=== PATIENT | female | born 1975 | race Hispanic/Latino ===

== ENCOUNTER 2018-06-01 20:00 | Emergency (ER) | payer OTHER ==
[~2018-06-01] VITALS: Ht 160 cm; Wt 88.1 kg
--- OUTSIDE RECORDS SUMMARY | 2018-06-01 20:03 | XMS REPORT ---
Author Author [facility] Address Unknown Phone Unavailable Care Team Providers Care Senior Data Modeler Name Role Phone EDUARD HARKINS Unavailable Unavailable Problems This patient has no known problems. Allergies, Adverse Reactions, Alerts This patient has no known allergies or adverse reactions. Medications This patient has no known medications. Encounters Start Date/Time End Date/Time Encounter Type Admission Type Attending Clinicians Care Facility Care Department Encounter ID 2017-04-02 15:08:00 2017-06-11 23:59:00 Outpatient [facility] [id number]
--- OUTSIDE RECORDS SUMMARY | 2018-06-01 20:03 | XMS REPORT | Clinical Summary ---
Author Author [facility] Address Unknown Phone Unavailable Care Team Providers Care [employer] Computer Science Teacher Name Role Phone Bharti Tysonfer Shira [employer]IL[employer] MANAGEMENT UM NURSE-C PCP Allergies Comments Active Allergy Reactions Severity Noted Date Scarring Adhesive Tape-Silicones Other (See 11/12/2017 Comments) Amoxicillin-Pot Hives, GI 06/22/2016 Clavulanate Intolerance Pt cites Itching and Hallucinations as reactions. Codeine Itching Medium 06/16/2016 Telithromycin Hives, GI 06/22/2016 Intolerance Shellfish Derived Anaphylaxis High 06/08/2016 Medications End Date Status Medication Sig Dispensed Refills Start Date Active montelukast (SINGULAIR) Take 10 mg by 3 10 mg tablet mouth every 7 evening. Active liraglutide (VICTOZA Inject 1.8 mg 0 2-SHERMAN) 0.6 mg/0.1 mL (18 under the mg/3 mL) pen injector skin daily. Active metFORMIN (GLUCOPHAGE) Take 1,000 mg 0 1,000 mg tablet by mouth 2 (two) times a day with meals. Active pravastatin (PRAVACHOL) Take 20 mg by 0 20 MG tablet mouth nightly. Active vortioxetine (TRINTELLIX) Take 20 mg by 0 20 mg tablet mouth nightly. Active cholecalciferol, vitamin Take 3,000 0 D3, (VITAMIN D3) 5,000 Units by unit tablet mouth. Active fluticasone (FLONASE) 50 2 sprays by 0 mcg/actuation nasal spray Each Nare route daily. Active albuterol (PROAIR Inhale 2 0 HFA,PROVENTIL puffs as HFA,VENTOLIN HFA) 90 needed for mcg/actuation inhaler wheezing. Active multivitamin with Take 1 tablet 0 minerals tablet by mouth daily. Active ALPRAZolam (XANAX) 0.5 MG Take 0.5 mg 0 tablet by mouth as needed for anxiety. Active insulin degludec (TRESIBA Inject 30 0 FLEXTOUCH U-200) 200 Units under unit/mL (3 mL) insulin the skin pen nightly. Active lisinopril Take 10 mg by 0 (PRINIVIL,ZESTRIL) 5 mg mouth daily. tablet Active MIBELAS 24 FE 1 mg-20 CHEW OR 84 tablet 1 mcg(24) /75 mg (4) SWALLOW ONE 8 tablet,chewable TABLET BY MOUTH DAILY Active loratadine (CLARITIN) 10 Take 10 mg by 0 mg tablet mouth daily. Active empagliflozin (JARDIANCE) Take 25 mg by 0 25 mg tablet mouth daily. Active insulin lispro (HUMALOG Inject 15 0 U-100 INSULIN SUBQ) Units under the skin as needed. PRN if blood sugar is 150 or higher. Active epINEPHrine 1 mg/mL kit Inject as 0 directed. Active diphenhydrAMINE Take 50 mg by 0 (BENADRYL) 25 mg capsule mouth every 6 (six) hours as needed for itching. Active azelastine (ASTELIN) 137 1 spray into 0 mcg (0.1 %) nasal spray each nostril as needed for rhinitis. Use in each nostril as directed Active cyanocobalamin, vitamin Take by 0 B-12, (VITAMIN B-12 ORAL) mouth. Active iron Take by 0 bis-gly/FA/C/B12/Ca/succ mouth. (IRON-150 ORAL) Active amitriptyline (ELAVIL) 25 Take 25 mg by 2 MG tablet mouth daily. 8 09/21/2017 Discontinued cetirizine (ZyrTEC) 10 MG Take 10 mg by 0 tablet mouth nightly. 09/21/2017 Discontinued omeprazole OTC (PriLOSEC Take 20 mg by 0 OTC) 20 MG EC tablet mouth daily. 09/21/2017 Discontinued lutein 20 mg tablet Take by 0 mouth. 09/21/2017 Discontinued nystatin-triamcinolone Apply 30 g 0 (MYCOLOG II) 100,000-0.1 topically 2 7 unit/g-% cream (two) times a day. 08/25/2017 Discontinued norethindrone-e.estradiol Chew or 84 tablet 3 -iron (MINASTRIN 24 FE) 1 swallow one 7 mg-20 mcg(24) /75 mg (4) tablet daily tablet,chewable 09/17/2017 acetaminophen-codeine Take 1-2 30 tablet 0 (TYLENOL WITH CODEINE #3) tablets by 8 300-30 mg per tablet mouth every 4 (four) hours as needed for moderate pain for up to 5 days. 11/05/2017 acetaminophen-codeine Take 1-2 30 tablet 0 (TYLENOL WITH CODEINE #3) tablets by 8 300-30 mg per tablet mouth every 4 (four) hours as needed for moderate pain for up to 5 days. Active Problems Problem Noted Date Carpal tunnel syndrome on right 10/31/2017 Overview: Added automatically from request for surgery [id number] Lesion of right ulnar nerve 10/31/2017 Overview: Added automatically from request for surgery [id number] Carpal tunnel syndrome on left 09/13/2017 Overview: Added automatically from request for surgery [id number] Lesion of left ulnar nerve 09/13/2017 Overview: Added automatically from request for surgery [id number] Pelvic mass 06/30/2016 Encounters Care Team Description Date Type Specialty Derian Moe MD Right ankle pain, unspecified chronicity (Primary Dx) 01/08/2018 Office Visit Orthopedic Surgery Eamon Méndez MD Carpal tunnel syndrome of right wrist (Primary Dx); Cubital tunnel syndrome on right 11/29/2017 Office Visit Orthopedic Surgery Marilou Richardson PA 11/27/2017 Telephone Orthopedic Surgery Mee Lopez FNP 11/19/2017 Anesthesia General Surgery Event Eamon Méndez MD Right endoscopic carpal tunnel release 11/19/2017 Surgery General Surgery Eamon Méndez MD 11/19/2017 Hospital General Surgery Encounter Eamon Méndez MD Preop testing (Primary Dx) 11/12/2017 Pre-Admit Pre-Admission Testing Testing Appointment Eamon Méndez MD Carpal tunnel syndrome of right wrist (Primary Dx); Cubital tunnel syndrome on right; Left carpal tunnel syndrome; Cubital tunnel syndrome on left 10/31/2017 Office Visit Orthopedic Surgery Eamon Méndez MD Carpal tunnel syndrome on right (Primary Dx); Lesion of right ulnar nerve 10/31/2017 Transcribe Orthopedic Surgery Orders Eamon Méndez MD Left carpal tunnel syndrome (Primary Dx); Cubital tunnel syndrome on left 10/08/2017 Office Visit Orthopedic Surgery Eamon Méndez MD Left carpal tunnel syndrome (Primary Dx); Cubital tunnel syndrome on left 10/01/2017 Office Visit Orthopedic Surgery Mee Lopez FNP 09/28/2017 Anesthesia General Surgery Event Eamon Méndez MD Left endoscopic carpal tunnel 09/28/2017 Surgery General Surgery Eamon Méndez MD 09/28/2017 Hospital General Surgery Encounter Eamon Méndez MD Preop testing (Primary Dx) 09/21/2017 Pre-Admit Pre-Admission Testing Testing Appointment Eamon Méndez MD Carpal tunnel syndrome on left (Primary Dx); Lesion of left ulnar nerve 09/13/2017 Transcribe Orthopedic Surgery Orders Eamon Méndez MD Bilateral carpal tunnel syndrome (Primary Dx); Cubital tunnel syndrome, bilateral 09/12/2017 Office Visit Orthopedic Surgery Braden Guerrero MD 08/25/2017 Refill Obstetrics and Gynecology Derian Moe MD Plantar fasciitis of left foot (Primary Dx); Contracture of left Achilles tendon 08/10/2017 Office Visit Orthopedic Surgery after 05/31/2017 Family History Medical History Relation Name Comments Diabetes Father Ernesto Type 2 Darrian Heart disease Father Ernesto Col[place]ares Kidney failure Father Ernesto [place] Diabetes Maternal Aunt Dahlkaleigh, Sigrid Type 2 Diabetes Maternal Ronnell [place] Grandfather Cancer Maternal Maria Antonia Lung Cancer Grandmother Durant Diabetes Maternal Maria Antonia Grandmother Durant Lung cancer Maternal Maria Antonia Grandmother [place] Diabetes Maternal Yoan, Juan Type 2 Uncle Anesthesia problems Mother Debbie trouble waking up from anesthesia Darrian Broken bones Mother Debbie ankle Darrian Diabetes Mother Vowinckel Type 2 Darrian Kidney failure Mother Vowinckel Darrian Diabetes Paternal Aunt Lore, Type 2 Trish, Blessing, Bhavani Diabetes Paternal Alysha Grandfather Darrian Diabetes Paternal Akhil Grandmother Darrian Diabetes Paternal Nguyễn, Type 2 Uncle Williams Relation Name Status Comments Father Ernesto Bolanos Darrian Maternal Aunt Dahlia, Sigrid Maternal Grandfather Ronnell [place] Maternal Grandmother Maria Antonia Durant Maternal Uncle Yoan, Juan Mother Debbie Colmenares Paternal Aunt Lore, Trish, Blessing, Bhavani Paternal Grandfather Alysha Colmenares Paternal Grandmother Akhil Colmenares Paternal Uncle Williams Adrian Social History Date Tobacco Use Types Packs/Day Years Used Never Smoker Smokeless Tobacco: Never Used Alcohol Use Drinks/Week oz/Week Comments No Sex Assigned at Date Recorded Not on file Industry Job Start Date Occupation Not on file Not on file Not on file Travel End Travel History Travel Start No recent travel history available. Last Filed Vital Signs Time Taken Vital Sign Reading 11/19/2017 11:00 AM CDT Blood Pressure 158/85 11/19/2017 11:46 AM CDT Pulse 85 11/19/2017 11:14 AM CDT Temperature 36.3 C (97.4 F) 11/19/2017 11:46 AM CDT Respiratory Rate 16 11/19/2017 11:00 AM CDT Oxygen Saturation 96% - Inhaled Oxygen - Concentration 11/12/2017 9:41 AM CDT Weight 85.3 kg (188 lb) 11/12/2017 9:41 AM CDT Height 160 cm (5' 3") 11/12/2017 9:41 AM CDT Body Mass Index 33.3 Plan of Treatment Health Maintenance Due Date Last Done Comments INFLUENZA VACCINE 11/14/2017 CERVICAL CANCER SCREENING 06/07/2019 06/07/2016 Goals Goal Patient Associated Recent Progress Patient-Stat Author Goal Type Problems ed? [facility] Nutrition General No Roslyn Garcia RD Note: 12/07/16 Active Use the plate method for meal planning. Procedures Comments Procedure Name Priority Date/Time Associated Diagnosis XR ANKLE 3+ VW RIGHT Routine 01/08/2018 Right ankle pain, 2:50 PM CDT unspecified chronicity POC GLUCOSE Routine 11/19/2017 10:13 AM CDT POC GLUCOSE Routine 11/19/2017 6:54 AM CDT ZZESTIMATED GFR Routine 11/12/2017 10:10 AM CDT HCG QUALITATIVE, SERUM Routine 11/12/2017 Preop testing SCREEN 10:10 AM CDT BASIC METABOLIC PANEL Routine 11/12/2017 Preop testing 10:10 AM CDT HC COMPLETE BLD COUNT Routine 11/12/2017 Preop testing W/AUTO DIFF 10:10 AM CDT POC GLUCOSE Routine 09/28/2017 9:01 AM CDT POC GLUCOSE Routine 09/28/2017 6:29 AM CDT ZZESTIMATED GFR Routine 09/21/2017 8:39 AM CDT HCG QUALITATIVE, SERUM Routine 09/21/2017 Preop testing SCREEN 8:39 AM CDT BASIC METABOLIC PANEL Routine 09/21/2017 Preop testing 8:39 AM CDT HC COMPLETE BLD COUNT Routine 09/21/2017 Preop testing W/AUTO DIFF 8:39 AM CDT ECG 12-LEAD Routine 09/21/2017 Preop testing 7:38 AM CDT UT INJECT TENDON Routine 08/10/2017 Plantar fasciitis of left ORIGIN/INSERT 8:30 AM CDT foot XR CALCANEUS 2+ VW LEFT Routine 08/10/2017 Pain of left heel 8:08 AM CDT after 05/31/2017 Results * XR Ankle 3+ Vw Right (01/08/2018 2:50 PM CDT) Addenda Addendum by Derian Moe MD on 01/08/2018 3:12 PM Right ankle not left Narrative Performed At [facility] 3 views of her left ankle done weightbearing today shows a well-preserved incongruent ankle mortise. There is some mild lateral soft tissue swelling of the distal fibula compared to the opposite side. No acute fractures or bony changes. Lateral radiograph shows a small os trigonum as well as calcified vessels both anteriorly and posteriorly. Performing Organization Address City/[facility] Phone Number [facility] [address] [place] [address] * POC glucose (11/19/2017 10:13 AM CDT) Only the most recent of 4 results within the time period is included. POC glucose 168 (H) 65 - 99 mg/dL [facility] DEPARTMENT OF Comment: PATHOLOGY AND RN Notified GENOMIC MEDICINE Meter ID: [id number] Physical Science Teacher: Satya Shukla Performing Organization Address [facility] Cent[facility]ode Phone Number [address] [address] PATHOLOGY AND GENOMIC MEDICINE * Estimated GFR (11/12/2017 10:10 AM CDT) Only the most recent of 2 results within the time period is included. GFR Non Af Amer >90 mL/min/1.73 m2 [facility] DEPARTMENT OF PATHOLOGY AND GENOMIC MEDICINE GFR Af Amer >90 mL/min/1.73 m2 [facility] DEPARTMENT OF Comment: PATHOLOGY AND Chronic kidney disease: <60 GENOMIC MEDICINE mL/min/1.73m2 Kidney failure: <15 mL/min/1.73m2 The estimated GFR is calculated from the IDMS-traceable Modification of Diet in Renal Disease Equation. The accuracy of the calculation is poor when the creatinine is normal. Calculated values >90 mL/min/1.73m2 are not reported. This equation has not been validated in children (<18 years), women, the elderly (>70 years), or ethnic groups other than Caucasians and Americans. Specimen Plasma specimen Performing Organization Address [facility] Phone Number [address] [address] PATHOLOGY AND GENOMIC MEDICINE * CBC with platelet and differential (11/12/2017 10:10 AM CDT) Only the most recent of 2 results within the time period is included. WBC 7.8 4.5 - 11.0 k/uL [facility] DEPARTMENT OF PATHOLOGY AND GENOMIC MEDICINE RBC 5.36 4.20 - 5.50 m/uL [facility] DEPARTMENT OF PATHOLOGY AND GENOMIC MEDICINE HGB 15.4 12.0 - 16.0 g/dL [facility] DEPARTMENT OF PATHOLOGY AND GENOMIC MEDICINE HCT 45.7 37.0 - 47.0 % [facility] DEPARTMENT OF PATHOLOGY AND GENOMIC MEDICINE MCV 85.3 82.0 - 100.0 fL [facility] DEPARTMENT OF PATHOLOGY AND GENOMIC MEDICINE MCH 28.7 27.0 - 34.0 pg [facility] DEPARTMENT OF PATHOLOGY AND GENOMIC MEDICINE MCHC 33.7 31.0 - 37.0 g/dL [facility] DEPARTMENT OF PATHOLOGY AND GENOMIC MEDICINE RDW - SD 37.5 37.0 - 55.0 fL [facility] DEPARTMENT OF PATHOLOGY AND GENOMIC MEDICINE MPV 10.3 6.9 - 11.0 fL [facility] DEPARTMENT OF PATHOLOGY AND GENOMIC MEDICINE Platelet count 283 150 - 400 K/uL [facility] DEPARTMENT OF PATHOLOGY AND GENOMIC MEDICINE Nucleated RBC 0.00 /100 WBC [facility] DEPARTMENT OF PATHOLOGY AND GENOMIC MEDICINE Neutrophils 66.1 39.0 - 69.0 % [facility] DEPARTMENT OF PATHOLOGY AND GENOMIC MEDICINE Lymphocytes 26.2 25.0 - 45.0 % [facility] DEPARTMENT OF PATHOLOGY AND GENOMIC MEDICINE Monocytes 6.1 0.0 - 10.0 % [facility] DEPARTMENT OF PATHOLOGY AND GENOMIC MEDICINE Eosinophils 0.9 0.0 - 5.0 % [facility] DEPARTMENT OF PATHOLOGY AND GENOMIC MEDICINE Basophils 0.4 0.0 - 1.0 % [facility] DEPARTMENT OF PATHOLOGY AND GENOMIC MEDICINE Immature granulocytes 0.3 0.0 - 1.0 % [facility] DEPARTMENT OF PATHOLOGY AND GENOMIC MEDICINE Specimen Blood Performing Organization Address City/[facility] [place] [address] PATHOLOGY AND [employer] MEDICINE * hCG qualitative, serum screen (11/12/2017 10:10 AM CDT) Only the most recent of 2 results within the time period is included. hCG qualitative, serum NegativeComment: Sensitivity [facility] DEPARTMENT of HCG test: 25 mIU/mL PATHOLOGY AND GENOMIC MEDICINE Specimen Blood Performing Organization Address City/[facility]/[place] [address] PATHOLOGY AND [employer] [facility] * Basic metabolic panel (11/12/2017 10:10 AM CDT) Only the most recent of 2 results within the time period is included. Sodium 138 135 - 148 mEq/L [facility] DEPARTMENT OF PATHOLOGY AND GENOMIC MEDICINE Potassium 4.2 3.5 - 5.0 mEq/L [facility] DEPARTMENT OF PATHOLOGY AND GENOMIC MEDICINE Chloride 98 98 - 112 mEq/L [facility] DEPARTMENT OF PATHOLOGY AND GENOMIC MEDICINE CO2 27 24 - 31 mEq/L [facility] DEPARTMENT OF PATHOLOGY AND GENOMIC MEDICINE Anion gap 13@ANIO 7 - 15 mEq/L [facility] DEPARTMENT OF PATHOLOGY AND GENOMIC MEDICINE BUN 16 6 - 20 mg/dL [facility] DEPARTMENT OF PATHOLOGY AND GENOMIC MEDICINE Creatinine 0.7 0.5 - 0.9 mg/dL [facility] DEPARTMENT OF PATHOLOGY AND GENOMIC MEDICINE Glucose 152 (H) 65 - 99 mg/dL [facility] DEPARTMENT OF PATHOLOGY AND GENOMIC MEDICINE Calcium 9.7 8.3 - 10.2 mg/dL [facility] DEPARTMENT OF PATHOLOGY AND GENOMIC MEDICINE Specimen Plasma specimen Performing Organization Address City/State/Zipcode Phone Number [place] [phone] [place] [address] PATHOLOGY AND GENOMIC MEDICINE * ECG 12 lead (09/21/2017 7:38 AM CDT) Ventricular rate 81 [facility] Atrial rate 81 [facility] UT interval 142 [facility] QRSD interval 78 [facility] QT interval 342 [facility] QTC interval 397 [facility] P axis 1 31 [facility] QRS axis 1 43 [facility] T wave axis 32 [facility] EKG impression Normal sinus rhythm-Septal [facility] infarct , age undetermined-Abnormal ECG-In automated comparison with ECG of 22-JUN-2016 16:06,-No significant change was found- Performing Organization Address City/[facility]ode Phone Number [facility] M[facility] [address] [place] [address] * Injection tendon or ligament (08/10/2017 8:30 AM CDT) Narrative Performed At Derian Moe MD 08/10/20178:41 AM Injection tendon or ligament Date/Time: 08/10/2017 8:34 AM Performed by: DERIAN MOE Authorized by: DERIAN MOE Consent: Consent obtained:Verbal Consent given by:Patient Alternatives discussed:Alternative treatment Procedure details: Type of injection:Tendon origin Location:Foot Laterality:Left Left side: Needle size: 27 G Left foot medications administered: 0.25 mL bupivacaine 0.5 % (5 mg/mL); 0.25 mL lidocaine 10 mg/mL (1 %); 20 mg methylPREDNISolone acetate 40 mg/mL Post-procedure details: Patient tolerance of procedure:Tolerated well, no immediate complications * XR Calcaneus 2+ Vw Left (08/10/2017 8:08 AM CDT) Narrative Performed At [facility] 2 views of her left os calcis done weightbearing today shows a prominent plantar exostosis off the calcaneus. There is a large os trigonum and a small osteophyte on the anterior neck of the talus. There is extensive vascular calcification both anteriorly and posteriorly. Joint spaces appear well preserved. I don't see any acute fractures. Her axial alignment is fairly neutral. Performing Organization Address City/State/Zipcode Phone Number [facility] [address] [place] [address] after 05/31/2017 Insurance Payer Benefit Subscriber ID Type Phone Address Plan / Group VASILE BAXTERMAN VASILE xxxxxxxxx Commercial [employer] Advance Directives Patient has advance care planning documents on file. For more information, maria fernanda sandoval contact: Chan Espinoza [address] [place] [address]
[2018-06-01] MEDS ORDERED: DIPHENHYDRAMINE HCL INJ 50 MG/ML VIAL IV ONE (20:15)
[2018-06-01] MEDS ORDERED: SODIUM CHLORIDE 0.9% 1000ML 1,000 ML IV SCH (20:15)
[2018-06-01] MEDS ORDERED: FAMOTIDINE 20 MG/2 ML VIAL IV STA (20:15)
[2018-06-01] MEDS ORDERED: METHYLPREDNISOLONE SOD SUCC 125 MG/2ML VIAL IV ONE (20:15)
[2018-06-01] MEDS ORDERED: PEPCID20 MG PO (20:20)
[2018-06-01] MEDS ORDERED: HYDROXYZINE HCL25 MG PO (20:20)
[2018-06-01] MEDS ORDERED: PREDNISONE20 MG PO (20:20)
[2018-06-01] MEDS ORDERED: EPINEPHRIN0.3 MG/0.3 IM (20:22)
--- NOTE | 2018-06-01 21:36 | NUR ---
pt feeling better and denies any complaints
== END 2018-06-01 21:40 | disposition home or self-care (01) ==
LOC: FSED 20:00
DX: T61.784A Other shellfish poisoning, undetermined, initial encounter (principal); T78.1XXA Other adverse food reactions, not elsewhere classified, initial encounter
CPT/HCPCS: 96374; 96375; 99283; J2930

== ENCOUNTER 2018-10-16 14:22 | Emergency (ER) | payer OTHER ==
[~2018-10-16] VITALS: Ht 160 cm; Wt 83.9 kg
[~2018-10-16 14:22] MED LIST: EPINEPHRIN0.3 MG/0.3 IM; HYDROXYZINE HCL25 MG PO; PEPCID20 MG PO; PREDNISONE20 MG PO
--- OUTSIDE RECORDS SUMMARY | 2018-10-16 14:26 | XMS REPORT | Clinical Summary ---
Author Author [facility] Organization [facility] Address Unknown Phone Unavailable Care Team Providers Care Criminal Investigative Agent Name Role Phone Bharti Tysonfer Shira SUPERVISOR RESIDENTIAL-C PCP Allergies Comments Active Allergy Reactions Severity [...] by 2 MG tablet mouth daily. 8 11/05/2017 acetaminophen-codeine Take 1-2 30 tablet 0 (TYLENOL WITH CODEINE #3) tablets by 8 300-30 mg per tablet mouth every 4 (four) hours as needed for moderate pain for up to 5 days. Active Problems Problem Noted Date Carpal tunnel syndrome on right 10/31/2017 Overview: Added automatically from request for surgery [id number] Lesion of right ulnar nerve 10/31/2017 Overview: Added automatically from request for surgery [id number] Carpal tunnel syndrome on left 09/13/2017 Overview: Added automatically from request for surgery [id number] Lesion of left ulnar nerve 09/13/2017 Overview: Added automatically from request for surgery [id number] Pelvic mass 06/30/2016 Encounters Care Team Description Date Type Specialty Derian Moe MD Right ankle pain, unspecified chronicity (Primary Dx) 01/08/2018 Office Visit Orthopedic Surgery Eamon Méndez MD Carpal tunnel syndrome of right wrist (Primary Dx); Cubital tunnel syndrome on right 11/29/2017 Office Visit Orthopedic Surgery Marilou Richardson PA 11/27/2017 Telephone Orthopedic Surgery Mee Lopez FNP 11/19/2017 Anesthesia General Surgery Event aEmon Méndez MD Right endoscopic carpal tunnel release [...] ulnar nerve 10/31/2017 Transcribe Orthopedic Surgery Orders after 10/15/2017 Family History Medical History Relation Name Comments Diabetes Father Ernesto Type 2 Darrian Heart disease Father Ernesto [place] Kidney failure Father Ernesto [place] Diabetes Maternal Aunt Dahlia, Sigrid Type 2 Diabetes Maternal Ronnell [place] Grandfather Cancer Maternal Maria Antonia Lung Cancer Grandmother [place] Diabetes Maternal Maria [place]ia Grandmother [place] Lung cancer Maternal Maria Antonia Grandmother [place] Diabetes Maternal Yoan, Juan Type 2 Uncle Anesthesia problems Mother [place] trouble waking up from anesthesia Darrian Broken bones Mother [place] ankle Darrian Diabetes Mother Debbie Type 2 Darrian Kidney failure Mother Debbie Darrian Diabetes Paternal Aunt Lore, Type 2 Trihs, Blessing, Bhavani Diabetes Paternal Alysha Grandfather Darrian Diabetes Paternal Akhil Grandmother Darrian Diabetes Paternal Nguyễn, Type 2 Uncle Williams Relation Name Status Comments Father Ernesto Darrian Maternal Aunt Dahlia, Sigrid Maternal Grandfather [...] Due Date Last Done Comments INFLUENZA VACCINE 11/14/2018 Goals Goal Patient Associated Recent Progress Patient-Stat Author Goal Type Problems ed? HM Nutrition General No Roslyn Garcia RD Note: [...] Preop testing W/AUTO DIFF 10:10 AM CDT after 10/15/2017 Results * XR Ankle 3+ Vw Right (01/08/2018 2:50 PM CDT) Specimen Addenda Addendum by Derian Moe MD on 01/08/2018 3:12 PM Right ankle not left Narrative Performed At [facility] 3 views of her left ankle done weightbearing today shows a well-preserved incongruent ankle mortise. There is some mild lateral soft tissue swelling of the distal fibula compared to the opposite side. No acute fractures or bony changes. Lateral radiograph shows a small os trigonum as well as calcified vessels both anteriorly and posteriorly. Performing Organization Address City/State/Zipcode Phone Number [facility] [address] [place] [address] * POC glucose (11/19/2017 10:13 AM CDT) Only the most recent of 2 results within the time period is included. Pathologist [facility] POC glucose 168 (H) 65 - 99 mg/dL [facility] DEPART[facility] Comment: OF PATHOLOGY RN Notified AND GENOMIC Meter ID: [id number] MEDICINE Community Support Specialist: Rovillos Ray Specimen Performing Organization Address City/State/Zipcode Phone Number [facility] [place] [address] [place] [address] PATHOLOGY AND GENOMIC MEDICINE * Estimated GFR (11/12/2017 10:10 AM CDT) [facility] GFR Non Af Amer >90 mL/min/1.73 m2 [facility] DEPARTMENT OF PATHOLOGY AND GENOMIC MEDICINE GFR Af Amer >90 mL/min/1.73 m2 [facility] Comment: OF PATHOLOGY Chronic kidney disease: <60 AND GENOMIC mL/min/1.73m2 MEDICINE Kidney failure: <15 mL/min/1.73m2 The estimated GFR [...] Americans. Specimen Plasma specimen Performing Organization Address City/State/Zipcode Phone Number [facility] [id number] [place] [address] PATHOLOGY [facility] * CBC with platelet and differential (11/12/2017 10:10 AM CDT) [facility] WBC 7.8 4.5 - 11.0 k/uL [facility] DEPARTMENT OF PATHOLOGY AND GENOMIC MEDICINE RBC 5.36 4.20 - 5.50 m/uL [facility] DEPARTMENT OF PATHOLOGY AND GENOMIC MEDICINE HGB 15.4 12.0 - 16.0 g/dL [facility] DEPARTMENT OF PATHOLOGY AND GENOMIC MEDICINE HCT 45.7 37.0 - 47.0 % [facility] DEPARTMENT OF PATHOLOGY AND GENOMIC MEDICINE MCV 85.3 82.0 - 100.0 fL [facility] DEPARTMENT OF PATHOLOGY AND GENOMIC MEDICINE MCH 28.7 27.0 - 34.0 pg [facility] DEPARTMENT OF PATHOLOGY AND GENOMIC MEDICINE MCHC 33.7 31.0 - 37.0 g/dL [facility] DEPARTMENT OF PATHOLOGY AND GENOMIC MEDICINE RDW - SD 37.5 37.0 - 55.0 fL [facility] DEPARTMENT OF PATHOLOGY AND GENOMIC MEDICINE MPV 10.3 6.9 - 11.0 fL [facility] DEPARTMENT OF PATHOLOGY AND GENOMIC MEDICINE Platelet count 283 150 - 400 K/uL [facility] DEPARTMENT OF PATHOLOGY AND GENOMIC MEDICINE Nucleated RBC 0.00 /100 WBC [facility] DEPARTMENT OF PATHOLOGY AND GENOMIC MEDICINE Neutrophils 66.1 39.0 - 69.0 % [facility] DEPARTMENT OF PATHOLOGY AND GENOMIC MEDICINE Lymphocytes 26.2 25.0 - 45.0 % [facility] DEPARTMENT OF PATHOLOGY AND GENOMIC MEDICINE Monocytes 6.1 0.0 - 10.0 % [facility] DEPARTMENT OF PATHOLOGY AND GENOMIC MEDICINE Eosinophils 0.9 0.0 - 5.0 % [facility] DEPARTMENT OF PATHOLOGY AND GENOMIC MEDICINE Basophils 0.4 0.0 - 1.0 % [facility] DEPARTMENT OF PATHOLOGY AND GENOMIC MEDICINE Immature 0.3 0.0 - 1.0 % [facility] DEPARTMENT granulocytes OF PATHOLOGY AND GENOMIC MEDICINE Specimen Blood Performing Organization Address City/[facility]/Zipcode Phone Number [facility] [phone] [place] [address] PATHOLOGY [facility] MEDICINE * hCG qualitative, serum screen (11/12/2017 10:10 AM CDT) Pathologist [facility] hCG NegativeComment: Sensitivity [facility] DEPARTMENT qualitative, of HCG test: 25 mIU/mL OF PATHOLOGY serum AND GENOMIC MEDICINE Specimen Blood Performing Organization Address City/[facility]/Zipcode Phone Number [place] [phone] PATHOLOGY AND GENOMIC MEDICINE * Basic metabolic panel (11/12/2017 10:10 AM CDT) Sodium 138 135 - 148 mEq/L [facility] DEPARTMENT OF PATHOLOGY AND GENOMIC MEDICINE Potassium 4.2 3.5 - 5.0 mEq/L [facility] DEPARTMENT OF PATHOLOGY AND GENOMIC MEDICINE Chloride 98 98 - 112 mEq/L [facility] DEPARTMENT OF PATHOLOGY AND GENOMIC MEDICINE CO2 27 24 - 31 mEq/L [facility] DEPARTMENT OF PATHOLOGY AND GENOMIC MEDICINE Anion gap 13@ANIO 7 - 15 mEq/L [facility] DEPARTMENT OF PATHOLOGY AND GENOMIC MEDICINE BUN 16 6 - 20 mg/dL [facility] DEPARTMENT OF PATHOLOGY AND GENOMIC MEDICINE Creatinine 0.7 0.5 - 0.9 mg/dL [facility] DEPARTMENT OF PATHOLOGY AND GENOMIC MEDICINE Glucose 152 (H) 65 - 99 mg/dL [facility] DEPARTMENT OF PATHOLOGY AND GENOMIC MEDICINE Calcium 9.7 8.3 - 10.2 mg/dL [facility] DEPARTMENT OF PATHOLOGY AND GENOMIC MEDICINE Specimen Plasma specimen Performing Organization Address City/[facility] Phone Number [facility] [phone] [place], [place] [address] PATHOLOGY AND GENOMIC MEDICINE after 10/15/2017 Insurance Type Payer Benefit Subscriber ID Effective Phone Address Plan / Dates Group Commercial [employer]ON SAM VASILE xxxxxxxxx 2012-[facility] Advance Directives Patient has advance care planning documents on file. For more information, maria fernanda sandoval contact: [facility] [address] [place] [address]
== END 2018-10-16 15:05 | disposition home or self-care (01) ==
LOC: FSED 14:22
DX: T78.1XXA Other adverse food reactions, not elsewhere classified, initial encounter (principal); X58.XXXA Exposure to other specified factors, initial encounter; I10 Essential (primary) hypertension; E11.9 Type 2 diabetes mellitus without complications; Z91.013 Allergy to seafood; Z91.041 Radiographic dye allergy status
CPT/HCPCS: 99282